=== PATIENT | male | born 1950 | race African-American/Black ===

== ENCOUNTER → 2016-10-27 | Outpatient (CLI) | payer MEDICARE, OTHER ==
[~2016-10-27] MED LIST: LAMISIL15 GM TOPIC; NKM
[2016-10-27 16:23] LABS: EOSINOPHILS % (AUTO) 0.5 % (0.0-3.0); LYMPHOCYTES % (AUTO) 14.9 % (20.0-45.0); MEAN CORPUSCULAR HEMOGLOBIN 29.7 PG (27.0-31.0); MEAN CORPUSCULAR HGB CONC 30.1 G/DL (32.0-36.0); MEAN CORPUSCULAR VOLUME 99 FL (80-99); MEAN PLATELET VOLUME 8.6 FL (6.5-10.1); MONOCYTES % (AUTO) 11.1 % (1.0-10.0); NEUTROPHILS % (AUTO) 71.6 % (45.0-75.0); PLATELET COUNT 206 K/UL (150-450); RED BLOOD COUNT 4.68 M/UL (4.70-6.10); RED CELL DISTRIBUTION WIDTH 13.2 % (11.6-14.8); WHITE BLOOD COUNT 10.2 K/UL (4.8-10.8)
[2016-10-27 16:32] LABS: ANION GAP 17 (5-15); CALCIUM 9.3 mg/dL (8.6-10.2); CARBON DIOXIDE 24 mEQ/L (20-30); CHLORIDE 96 mEQ/L (98-107); CHOLESTEROL 160 mg/dL (< 200); CHOLESTEROL/HDL RATIO 2.2 (3.3-4.4); CREATININE 1.2 mg/dL (0.7-1.2); GLOMERULAR FILTRATION RATE > 60 mL/min (>60); HEMOLYSIS 2; LDL CHOLESTEROL (CALC.) 67 mg/dL (60-99); POTASSIUM 3.8 mEQ/L (3.4-4.9); SODIUM 137 mEQ/L (135-145)
[2016-10-27 16:42] LABS: THYROID STIMULATING HORMONE 0.665 uIU/mL (0.300-4.500)
== END | disposition home or self-care (01) ==
LOC: LAB 15:40
DX: R63.4 Abnormal weight loss (principal)
CPT/HCPCS: 36415; 80048; 80061; 83036; 84443; 85025

== ENCOUNTER → 2017-01-14 | Outpatient (CLI) | payer MEDICARE, OTHER ==
[2017-01-14 10:04] LABS: BASOPHILS % (AUTO) 0.7 % (0.0-2.0); EOSINOPHILS % (AUTO) 0.8 % (0.0-3.0); LYMPHOCYTES % (AUTO) 20.7 % (20.0-45.0); MEAN CORPUSCULAR HEMOGLOBIN 30.7 PG (27.0-31.0); MEAN CORPUSCULAR HGB CONC 31.2 G/DL (32.0-36.0); MEAN CORPUSCULAR VOLUME 99 FL (80-99); MEAN PLATELET VOLUME 5.7 FL (6.5-10.1); MONOCYTES % (AUTO) 8.2 % (1.0-10.0); NEUTROPHILS % (AUTO) 69.6 % (45.0-75.0); PLATELET COUNT 564 K/UL (150-450); RED BLOOD COUNT 3.74 M/UL (4.70-6.10); RED CELL DISTRIBUTION WIDTH 13.1 % (11.6-14.8); WHITE BLOOD COUNT 7.4 K/UL (4.8-10.8)
[2017-01-14 10:37] LABS: ANION GAP 15 (5-15); CALCIUM 9.3 mg/dL (8.6-10.2); CARBON DIOXIDE 25 mEQ/L (20-30); CHLORIDE 104 mEQ/L (98-107); CREATININE 1.1 mg/dL (0.7-1.2); GLOMERULAR FILTRATION RATE > 60 mL/min (>60); HEMOLYSIS 13; POTASSIUM 4.7 mEQ/L (3.4-4.9); SODIUM 144 mEQ/L (135-145)
[2017-01-15 13:02] LABS: PREALBUMIN 16 mg/dL (10-36)
[2017-01-17 09:15] LABS: VITAMIN D 25-OH TOTAL 13 ng/mL (.)
== END | disposition home or self-care (01) ==
LOC: LAB 09:34
DX: R63.4 Abnormal weight loss (principal)
CPT/HCPCS: 36415; 80048; 82040; 82306; 82607; 84134; 85025

== ENCOUNTER 2017-03-02 14:53 | Inpatient (IN) | payer MEDICARE, MEDICAID ==
[~2017-03-02] VITALS: Ht 165.1 cm; Wt 49.0 kg
[2017-03-02] MEDS ORDERED: Morphine Sulfate 2mg/ml Inj IVP PRN (15:15)
[2017-03-02] MEDS ORDERED: Mylanta II UD 30ml ORAL PRN (15:15)
[2017-03-02] MEDS ORDERED: Zolpidem 5mg tab ORAL PRN (15:15)
[2017-03-02] MEDS ORDERED: LORazepam Inj 2mg/ml 1ml IV PRN (15:15)
[2017-03-02] MEDS ORDERED: Miralax 17gm pkt ORAL PRN (15:15)
--- NOTE | 2017-03-02 15:49 | Emergency Room Report ---
History of Present Illness General Chief Complaint: Generalized Weakness Source: Patient Present Illness HPI 66 yo M hx of appy/gustabo s/p surgical resection several years ago, p/w 3 weeks of lightheadedness, dec appetite, fatigue. States he has not had any appetite, for both food and liquid. Today he has not eaten anything. +nausea no vomiting. Denies abd pain, but does have loose stools periodically. Denies any black or bloody stools. Denies fever chills cough. +mild sob. No cp. denies hx of malignancy. has had ~15 pound weight loss in 2 weeks. Allergies: Coded Allergies: No Known Allergies (Unverified , 03/12/13) Patient History Past Medical History: none Past Surgical History: appy, gustabo Pertinent Family History: none Social History: Reports: smoking Nursing Documentation-[facility] Past Medical History: No Stated History Review of Systems Constitutional: Reports: malaise - dizziness, weakness Gastrointestinal: Reports: nausea All Other Systems: negative except mentioned in HPI Physical Exam Vital Signs Date Time Temp Pulse Resp B/P Pulse Ox O2 Delivery O2 Flow Rate FiO2 03/02/17 15:04 98.4 89 14 104/77 100 Room Air Sp02 EP Interpretation: reviewed, normal General Appearance: normal inspection, no apparent distress, alert, GCS 15, non -toxic, cachetic, thin Head: normocephalic, atraumatic Eyes: bilateral eye EOMI, bilateral eye normal inspection ENT: normal ENT inspection, normal pharynx, normal voice, moist mucus membranes Neck: normal inspection, full range of motion, supple, no bony tend Respiratory: normal inspection, lungs clear, normal breath sounds, no respiratory distress, no retraction, no wheezing, speaking full sentences, chest symmetrical Cardiovascular #1: normal inspection, regular rate, rhythm, no edema, normal capillary refill Gastrointestinal: normal inspection, non tender, soft, non-distended, no guarding, other - well healed surgical scars on abdomen, nontender to deep palpation, normal bowel sounds Genitourinary: no CVA tenderness Musculoskeletal: normal inspection, back normal, normal range of motion, non- tender Neurologic: normal inspection, alert, oriented x3, responsive, 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 I attest that this information is true, accurate and complete to the best of my knowledge. I understand that any falsification, omission, or concealment of material fact may subject me to administrative, civil, or criminal liability. This patient warrants hospital admission for extreme of age and has a condition that cannot be treated as outpatient. ER Course 66 yo M with 2 weeks of dec appetite, lightheadedness DDX: failure to thrive / dehydration / electrolyte disturbance / infectious etiology pneumonia/UTI / malignancy Plans: IV access, basic blood work, cxr, IV fluids, anticipate admission ER course: has remained stable in ED. EKG: possible peaked T waves that was tx with 1gm calcium however chemistry resulted later showing no hyperkalemia labs no leukocytosis given IVF Disposition Admit to medicine unit Dr. Germain sent in patient and is aware. Patient requires inpatient admission for dehydration/failure to thrive EKG Diagnostic Results Rate: normal Rhythm: NSR ST Segments: no acute changes Other Impression concern for peaked T waves V4-V5 Rhythm Strip Diag. Results EP Interpretation: yes Rhythm: NSR Last Vital Signs Date Time Temp Pulse Resp B/P Pulse Ox O2 Delivery O2 Flow Rate FiO2 03/02/17 15:04 98.4 89 14 104/77 100 Room Air Disposition: ADMITTED INPATIENT Condition: Stable Referrals: NOT CHOSEN DE/,REFERRING (PCP) Madisyn Eddy M.D. Mar 02, 2017 15:49
[2017-03-02] MEDS ORDERED: Calcium Gluconate 1gm/10ml vial IVP ONE (16:00)
[2017-03-02 16:14] LABS: BASOPHILS % (AUTO) 1.4 % (0.0-2.0); EOSINOPHILS % (AUTO) 8.1 % (0.0-3.0); LYMPHOCYTES % (AUTO) 29.4 % (20.0-45.0); MEAN CORPUSCULAR HEMOGLOBIN 31.6 PG (27.0-31.0); MEAN CORPUSCULAR HGB CONC 32.3 G/DL (32.0-36.0); MEAN CORPUSCULAR VOLUME 98 FL (80-99); MEAN PLATELET VOLUME 8.1 FL (6.5-10.1); MONOCYTES % (AUTO) 5.1 % (1.0-10.0); PLATELET COUNT 208 K/UL (150-450); RED BLOOD COUNT 3.64 M/UL (4.70-6.10); RED CELL DISTRIBUTION WIDTH 14.4 % (11.6-14.8); WHITE BLOOD COUNT 5.7 K/UL (4.8-10.8)
[2017-03-02 16:38] VITALS: BP 104/69
[2017-03-02 16:38] LABS: ALANINE AMINOTRANSFERASE 19 U/L (3-41); ANION GAP 12 (5-15); ASPARTATE AMINO TRANSFERASE 21 U/L (5-40); CALCIUM 8.9 mg/dL (8.6-10.2); CARBON DIOXIDE 26 mEQ/L (20-30); CHLORIDE 101 mEQ/L (98-107); CREATININE 1.2 mg/dL (0.7-1.2); GLOMERULAR FILTRATION RATE > 60 mL/min (>60); HEMOLYSIS 25; POTASSIUM 4.7 mEQ/L (3.4-4.9); SODIUM 139 mEQ/L (135-145); TOTAL PROTEIN 7.3 g/dL (6.6-8.7)
--- NOTE | 2017-03-02 16:41 | Diagnostic Imaging Report ---
Indication: Shortness of breath Technique: One view of the chest Comparison: None Findings: Lungs are mildly hyperinflated. There is slight blunting of the right costophrenic angle. Lungs and pleural spaces are otherwise clear. Heart size is normal. Impression: Evidence of COPD Right costophrenic angle blunting, probably secondary to the above, small effusion not completely excludable No acute process otherwise
--- NOTE | 2017-03-02 16:55 | History and Physical ---
History of Present Illness General Date patient seen: Mar 02, 2017 Reason for Hospitalization: Generalized Weakness Present Illness HPI 66 yo M hx of appy/gustabo s/p surgical resection several years ago, p/w 3 weeks of lightheadedness, decreased appetite, fatigue. States he has not had any appetite, for both food and liquid. +nausea no vomiting. Denies abd pain, but does have loose stools periodically. Denies any black or bloody stools. Denies fever chills cough. +mild sob. No cp. denies hx of malignancy. has had ~15 pound weight loss in 2 weeks. Allergies: Coded Allergies: No Known Allergies (Unverified , 03/12/13) Medication History Scheduled No Known Medications* (NKM - No Known Medications*), 0 ., (Reported) Terbinafine (Lamisil At), 15 GM TOPIC BID Patient History Healthcare decision maker Resuscitation status Advanced Directive on File Past Medical/Surgical History Past Medical/Surgical History: (1) History of appendectomy Review of Systems Constitutional: Reports: malaise, weakness All Other Systems: negative except mentioned in HPI Physical Exam General Appearance: cachetic Lines, tubes and drains: peripheral HEENT: normocephalic, atraumatic Neck: non-tender, normal alignment Respiratory/Chest: chest wall non-tender, lungs clear Breasts: no masses Cardiovascular/Chest: normal peripheral pulses Abdomen: normal bowel sounds Genitourinary/Rectal: normal genital exam Extremities: normal range of motion Skin Exam: normal pigmentation Last 24 Hour Vital Signs Date Time Temp Pulse Resp B/P Pulse Ox O2 Delivery O2 Flow Rate FiO2 03/02/17 16:38 98.3 70 14 104/69 100 Room Air 03/02/17 15:04 98.4 89 14 104/77 100 Room Air Laboratory Tests Test 03/02/17 15:45 White Blood Count 5.7 K/UL (4.8-10.8) Red Blood Count 3.64 M/UL (4.70-6.10) L Hemoglobin 11.5 G/DL (14.2-18.0) L Hematocrit 35.5 % (42.0-52.0) L Mean Corpuscular Volume 98 FL (80-99) Mean Corpuscular Hemoglobin 31.6 PG (27.0-31.0) H Mean Corpuscular Hemoglobin Concent 32.3 G/DL (32.0-36.0) Red Cell Distribution Width 14.4 % (11.6-14.8) Platelet Count 208 K/UL (150-450) Mean Platelet Volume 8.1 FL (6.5-10.1) Neutrophils (%) (Auto) 56.0 % (45.0-75.0) Lymphocytes (%) (Auto) 29.4 % (20.0-45.0) Monocytes (%) (Auto) 5.1 % (1.0-10.0) Eosinophils (%) (Auto) 8.1 % (0.0-3.0) H Basophils (%) (Auto) 1.4 % (0.0-2.0) Sodium Level 139 mEQ/L (135-145) Potassium Level 4.7 mEQ/L (3.4-4.9) Chloride Level 101 mEQ/L (98-107) Carbon Dioxide Level 26 mEQ/L (20-30) Anion Gap 12 (5-15) Blood Urea Nitrogen 18 mg/dL (7-23) Creatinine 1.2 mg/dL (0.7-1.2) Estimat Glomerular Filtration Rate > 60 mL/min (>60) Glucose Level 76 mg/dL (74-106) Calcium Level 8.9 mg/dL (8.6-10.2) Total Bilirubin 0.3 mg/dL (0.0-1.2) Aspartate Amino Transf (AST/SGOT) 21 U/L (5-40) Alanine Aminotransferase (ALT/SGPT) 19 U/L (3-41) Alkaline Phosphatase 114 U/L (40-129) Troponin I Pending Total Protein 7.3 g/dL (6.6-8.7) Albumin 3.8 g/dL (3.5-5.2) Globulin 3.5 g/dL Albumin/Globulin Ratio 1.0 (1.0-2.7) Height (Feet): 5 Height (Inches): 6.00 Weight (Pounds): 108 Medications Current Medications Medications (Trade) Dose Ordered Sig/Hill Route PRN Reason Start Time Stop Time Status Last Admin Dose Admin Acetaminophen (Tylenol) 650 mg Q4H PRN ORAL fever 03/02/17 15:15 04/01/17 15:14 Al Hydroxide/Mg Hydroxide (Mylanta II) 30 ml Q6H PRN ORAL dyspepsia 03/02/17 15:15 04/01/17 15:14 Dextrose (Dextrose 50%) STAT PRN IV Hypoglycemia 03/02/17 15:15 04/01/17 15:14 Lorazepam (Ativan 2mg/ml 1ml) 0.5 mg Q4H PRN IV For Anxiety 03/02/17 15:15 03/09/17 15:14 Morphine Sulfate (Morphine Sulfate) 1 mg Q4H PRN IVP For Pain Scale 4-10 03/02/17 15:15 03/09/17 15:14 Ondansetron HCl (Zofran) 4 mg Q6H PRN IVP Nausea & Vomiting 03/02/17 15:15 04/01/17 15:14 Polyethylene Glycol (Miralax) 17 gm HSPRN PRN ORAL Constipation 03/02/17 15:15 04/01/17 15:14 Zolpidem Tartrate (Ambien) 5 mg HSPRN PRN ORAL Insomnia 03/02/17 15:15 04/01/17 15:14 Assessment/Plan Problem List: (1) Weight loss of more than 10% body weight ICD Codes: R63.4 - Abnormal weight loss SNOMED: 74172819 (2) Anemia ICD Codes: D64.9 - Anemia, unspecified SNOMED: 047775541 (3) Failure to thrive SNOMED: 19840823 Assessment/Plan calorie count GI evaluation malignancy w/u tumor markers BARBER GAMBLE Mar 02, 2017 16:55
[2017-03-02 17:27] LABS: TROPONIN I < 0.30 ng/mL (<=0.30)
[2017-03-02 17:38] VITALS: BP 131/94
[2017-03-02 20:00] VITALS: BP 143/98
[2017-03-03] VITALS: BP 127/78
[2017-03-03 04:00] VITALS: BP 122/73
[2017-03-03 06:34] LABS: BASOPHILS % (AUTO) 1.3 % (0.0-2.0); EOSINOPHILS % (AUTO) 10.3 % (0.0-3.0); MEAN CORPUSCULAR HEMOGLOBIN 30.9 PG (27.0-31.0); MEAN CORPUSCULAR HGB CONC 31.8 G/DL (32.0-36.0); MEAN CORPUSCULAR VOLUME 97 FL (80-99); MEAN PLATELET VOLUME 7.7 FL (6.5-10.1); MONOCYTES % (AUTO) 7.8 % (1.0-10.0); NEUTROPHILS % (AUTO) 39.7 % (45.0-75.0); PLATELET COUNT 225 K/UL (150-450); RED BLOOD COUNT 3.93 M/UL (4.70-6.10); RED CELL DISTRIBUTION WIDTH 14.2 % (11.6-14.8); WHITE BLOOD COUNT 4.7 K/UL (4.8-10.8)
[2017-03-03 07:21] LABS: ALANINE AMINOTRANSFERASE 16 U/L (3-41); ANION GAP 9 (5-15); ASPARTATE AMINO TRANSFERASE 18 U/L (5-40); CALCIUM 8.9 mg/dL (8.6-10.2); CARBON DIOXIDE 27 mEQ/L (20-30); CHLORIDE 104 mEQ/L (98-107); CHOLESTEROL 145 mg/dL (< 200); CHOLESTEROL/HDL RATIO 2.1 (3.3-4.4); CREATININE 1.1 mg/dL (0.7-1.2); GLOMERULAR FILTRATION RATE > 60 mL/min (>60); HEMOLYSIS 2; LDL CHOLESTEROL (CALC.) 49 mg/dL (60-99); POTASSIUM 4.3 mEQ/L (3.4-4.9); SODIUM 140 mEQ/L (135-145); TOTAL PROTEIN 6.7 g/dL (6.6-8.7)
[2017-03-03 07:29] LABS: APPEARANCE,URINE SLIGHTLY CLOUDY; KETONES,URINE NEGATIVE (NEGATIVE); LEUKOCYTE ESTERASE ,URINE 3+ (NEGATIVE); NITRITE,URINE POSITIVE (NEGATIVE); PH,URINE 7 (4.5-8.0); PROTEIN,URINE NEGATIVE (NEGATIVE); UROBILINOGEN,URINE 1 MG/DL (0.0-1.0)
[2017-03-03 07:43] LABS: BACTERIA,URINE MODERATE /HPF; RBC,URINE 0-2 /HPF (0 - 0); SQUAMOUS EPITHELIAL CELL,UR FEW /LPF (NONE/OCC)
[2017-03-03 08:16] VITALS: BP 119/84
[2017-03-03 09:30] LABS: HEMOLYSIS 6; IRON 89 ug/dL (59-158); TOTAL IRON BINDING CAPACITY 310 ug/dL (250-400)
[2017-03-03 12:14] VITALS: BP 107/67
[2017-03-03] MEDS ORDERED: Magnesium Citrate Liq Btl ORAL ONE (16:00)
[2017-03-03] MEDS ORDERED: Polyethylene Glycol 238gm bottle ORAL ONE (16:00)
[2017-03-03] MEDS ORDERED: Bisacodyl EC 5mg tab ORAL ONE (16:00)
--- NOTE | 2017-03-03 16:24 | GI Initial Consult Note ---
Xiomara Dacosta N.P. 03/03/17 1624: History of Present Illness General Date patient seen: Mar 03, 2017 Time patient seen: 11:00 Reason for Hospitalization: Generalized Weakness Referring physician: BARBER HUDSON Reason for Consultation: FTT Present Illness HPI 66 yo M hx of appy/gustabo s/p surgical resection several years ago, p/w 3 weeks of lightheadedness, dec appetite, fatigue. States he has not had any appetite, for both food and liquid. Today he has not eaten anything. +nausea no vomiting. Denies abd pain, but does have loose stools periodically. Denies any black or bloody stools. Denies fever chills cough. +mild sob. No cp. denies hx of malignancy. has had ~15 pound weight loss in 2 weeks. GI Consult. HPI as noted above. GI consulted for decreased appetite, wt loss of 15 lbs x 2 weeks. Pt seen on floor, awake A&Ox4 NAD with no active s/sx of N /V/D. No GI symptoms noted at this time. No history of any endoscopic procedures. Hx of abdominal surgery approximately 3-4 years ago, pt unable to recall. Home Meds Active Scripts Dronabinol* (MARINOL*) 2.5 Mg Capsule, 2.5 MG ORAL THREE TIMES A DAY, #15 CAP 0 Refills Prov:BARBER GAMBLE 03/05/17 Zolpidem Tartrate* (AMBIEN*) 5 Mg Tablet, 5 MG ORAL HSPRN Y for 30 Days, TAB Prov:BARBER GAMBLE 03/05/17 Terbinafine (Lamisil At) 15 Gm Cr, 15 GM TOPIC BID, #15 GM Prov:OSCAR VASQUEZ M.D. 03/12/13 Reported Medications No Known Medications* (NKM - No Known Medications*) ., 0 ., 0 Refills 03/12/13 Med list reviewed/reconciled: Yes Allergies: Coded Allergies: No Known Allergies (Unverified , 03/12/13) Patient History History Provided By: Patient, Medical Record PMH Narrative Past Medical History: none Past Surgical History: appy, gustabo Pertinent Family History: none Social History: Reports: smoking Nursing Documentation-[facility] Past Medical History: No Stated History Review of Systems All Other Systems: negative except mentioned in HPI Physical Exam Vital Signs Date Time Temp Pulse Resp B/P Pulse Ox O2 Delivery O2 Flow Rate FiO2 03/02/17 15:04 98.4 89 14 104/77 100 Room Air Sp02 EP Interpretation: reviewed Labs Laboratory Tests Test 03/03/17 03:00 03/03/17 04:50 Urine Color Yellow Urine Appearance Slightly cloudy Urine pH 7 (4.5-8.0) Urine Specific [place] 1.005 (1.005-1.035) Urine Protein Negative (NEGATIVE) Urine Glucose (UA) Negative (NEGATIVE) Urine Ketones Negative (NEGATIVE) Urine Occult Blood Negative (NEGATIVE) Urine Nitrite Positive (NEGATIVE) H Urine Bilirubin Negative (NEGATIVE) Urine Urobilinogen 1 MG/DL (0.0-1.0) H Urine Leukocyte Esterase 3+ (NEGATIVE) H Urine RBC 0-2 /HPF (0 - 0) H Urine WBC 5-10 /HPF (0 - 0) H Urine Squamous Epithelial Cells Few /LPF (NONE/OCC) Urine Bacteria Moderate /HPF (NONE) H White Blood Count 4.7 K/UL (4.8-10.8) L Red Blood Count 3.93 M/UL (4.70-6.10) L Hemoglobin 12.1 G/DL (14.2-18.0) L Hematocrit 38.2 % (42.0-52.0) L Mean Corpuscular Volume 97 FL (80-99) Mean Corpuscular Hemoglobin 30.9 PG (27.0-31.0) Mean Corpuscular Hemoglobin Concent 31.8 G/DL (32.0-36.0) L Red Cell Distribution Width 14.2 % (11.6-14.8) Platelet Count 225 K/UL (150-450) Mean Platelet Volume 7.7 FL (6.5-10.1) Neutrophils (%) (Auto) 39.7 % (45.0-75.0) L Lymphocytes (%) (Auto) 41.0 % (20.0-45.0) Monocytes (%) (Auto) 7.8 % (1.0-10.0) Eosinophils (%) (Auto) 10.3 % (0.0-3.0) H Basophils (%) (Auto) 1.3 % (0.0-2.0) Sodium Level 140 mEQ/L (135-145) Potassium Level 4.3 mEQ/L (3.4-4.9) Chloride Level 104 mEQ/L (98-107) Carbon Dioxide Level 27 mEQ/L (20-30) Anion Gap 9 (5-15) Blood Urea Nitrogen 15 mg/dL (7-23) Creatinine 1.1 mg/dL (0.7-1.2) Estimat Glomerular Filtration Rate > 60 mL/min (>60) Glucose Level 87 mg/dL (74-106) Calcium Level 8.9 mg/dL (8.6-10.2) Iron Level 89 ug/dL (59-158) Total Iron Binding Capacity 310 ug/dL (250-400) Percent Iron Saturation 29 % (15-50) Unsaturated Iron Binding 221 ug/dL (112-346) Total Bilirubin 0.5 mg/dL (0.0-1.2) Aspartate Amino Transf (AST/SGOT) 18 U/L (5-40) Alanine Aminotransferase (ALT/SGPT) 16 U/L (3-41) Alkaline Phosphatase 101 U/L (40-129) Total Protein 6.7 g/dL (6.6-8.7) Albumin 3.5 g/dL (3.5-5.2) Globulin 3.2 g/dL Albumin/Globulin Ratio 1.0 (1.0-2.7) Triglycerides Level 130 mg/dL (< 150) Cholesterol Level 145 mg/dL (< 200) LDL Cholesterol 49 mg/dL (60-99) L HDL Cholesterol 70 mg/dL (> 60) H Cholesterol/HDL Ratio 2.1 (3.3-4.4) L Carcinoembryonic Antigen 7.7 ng/mL H Thyroid Stimulating Hormone (TSH) 0.900 uIU/mL (0.300-4.500) General Appearance: well appearing, no apparent distress, alert, thin Head: normocephalic EENT: PERRL/EOMI, normal ENT inspection Neck: supple Respiratory: normal breath sounds, no respiratory distress Cardiovascular: normal rate Gastrointestinal: soft, normal bowel sounds Rectal: normal exam, deferred Genitourinary: no CVA tenderness Neurologic: normal inspection, alert, oriented x3, responsive Psychiatric: normal inspection, judgement/insight normal, memory normal Skin: normal inspection, normal color, no rash, warm/dry Lymphatic: normal inspection, no adenopathy Current Medications Current Medications Medications (Trade) Dose Ordered Sig/Hill Route PRN Reason Start Time Stop Time Status Last Admin Dose Admin Acetaminophen (Tylenol) 650 mg Q4H PRN ORAL fever 03/02/17 15:15 04/01/17 15:14 Al Hydroxide/Mg Hydroxide (Mylanta II) 30 ml Q6H PRN ORAL dyspepsia 03/02/17 15:15 04/01/17 15:14 Dextrose (Dextrose 50%) STAT PRN IV Hypoglycemia 03/02/17 15:15 04/01/17 15:14 Lorazepam (Ativan 2mg/ml 1ml) 0.5 mg Q4H PRN IV For Anxiety 03/02/17 15:15 03/09/17 15:14 Morphine Sulfate (Morphine Sulfate) 1 mg Q4H PRN IVP For Pain Scale 4-10 03/02/17 15:15 03/09/17 15:14 Ondansetron HCl (Zofran) 4 mg Q6H PRN IVP Nausea & Vomiting 03/02/17 15:15 04/01/17 15:14 Polyethylene Glycol (Miralax) 17 gm HSPRN PRN ORAL Constipation 03/02/17 15:15 04/01/17 15:14 Zolpidem Tartrate (Ambien) 5 mg HSPRN PRN ORAL Insomnia 03/02/17 15:15 04/01/17 15:14 GI: Plan Problems: (1) Colonoscopy planned (2) Episode of generalized weakness (3) Failure to thrive Plan EGD/colonoscopy scheduled for tomorrow. - CLD, NPO @ [place]. - hold all blood thinners tonight ordered ga CT ordered tumor markers calorie count, will consider marinol H2B fu labs Discussed with Dr. Carson. Thank you for referring this patient. MEGA CARSON 03/11/17 0945: History of Present Illness General Reason for Hospitalization: Generalized Weakness Present Illness Home Meds Active Scripts Dronabinol* (MARINOL*) 2.5 Mg Capsule, 2.5 MG ORAL THREE TIMES A DAY, #15 CAP 0 Refills Prov:ZARRABI,MIRALI 03/05/17 Zolpidem Tartrate* (AMBIEN*) 5 Mg Tablet, 5 MG ORAL HSPRN Y for 30 Days, TAB Prov:ZARRABI,MIRALI 03/05/17 Terbinafine (Lamisil At) 15 Gm Cr, 15 GM TOPIC BID, #15 GM Prov:OSCAR VASQUEZ M.D. 03/12/13 Reported Medications No Known Medications* (NKM - No Known Medications*) ., 0 ., 0 Refills 03/12/13 Allergies: Coded Allergies: No Known Allergies (Unverified , 03/12/13) GI: Plan Plan The patient was seen and examined at bedside and all new and available data was reviewed in the patients chart. I agree with the above findings, impression and plan. (Patient seen earlier today. Signature stamp does not reflect patient encounter time.). -Mega [facility] James N.PSarahy Mar 03, 2017 16:24 MEGA CARSON Mar 11, 2017 09:45
[2017-03-03 16:34] VITALS: BP 105/63
--- NOTE | 2017-03-03 19:29 | Pulmonology Progress Note ---
Assessment/Plan Problems: (1) Weight loss of more than 10% body weight (2) Anemia (3) Failure to thrive Assessment/Plan ga CT scan HIV testing stool for OB calorie count' ensure with meals Subjective ROS Limited/Unobtainable: No Allergies: Coded Allergies: No Known Allergies (Unverified , 03/12/13) Objective Last 24 Hour Vital Signs Date Time Temp Pulse Resp B/P Pulse Ox O2 Delivery O2 Flow Rate FiO2 03/03/17 16:34 97.9 64 18 105/63 95 Room Air 03/03/17 12:14 97.7 63 18 107/67 95 Room Air 03/03/17 08:16 97.6 76 18 119/84 98 Room Air 03/03/17 04:00 97.5 77 20 122/73 98 Room Air 03/03/17 00:00 97.9 99 20 127/78 100 Room Air 03/02/17 20:00 97.0 75 20 143/98 96 Room Air Intake and Output 03/02/17 03/03/17 19:00 07:00 Intake Total 240 ml Output Total 1250 ml Balance -1010 ml Intake Oral 240 ml Output Urine Total 1250 ml General Appearance: WD/WN, no acute distress HEENT: normocephalic, atraumatic Respiratory/Chest: chest wall non-tender, lungs clear Cardiovascular: normal peripheral pulses, normal rate Abdomen: normal bowel sounds, soft, non tender Genitourinary: normal external genitalia Extremities: no cyanosis Laboratory Tests 03/03/17 03:00: Urine Color Yellow, Urine Appearance Slightly cloudy, Urine pH 7, Urine Specific [place] 1.005, Urine Protein Negative, Urine Glucose (UA) Negative, Urine Ketones Negative, Urine Occult Blood Negative, Urine Nitrite PositiveH, Urine Bilirubin Negative, Urine Urobilinogen 1H, Urine Leukocyte Esterase 3+H, Urine RBC 0-2H, Urine WBC 5-10H, Urine Squamous Epithelial Cells Few, Urine Bacteria ModerateH 03/03/17 04:50: White Blood Count 4.7L, Red Blood Count 3.93L, Hemoglobin 12.1L, Hematocrit 38.2L, Mean Corpuscular Volume 97, Mean Corpuscular Hemoglobin 30.9, Mean Corpuscular Hemoglobin Concent 31.8L, Red Cell Distribution Width 14.2, Platelet Count 225, Mean Platelet Volume 7.7, Neutrophils (%) (Auto) 39.7L, Lymphocytes (%) (Auto) 41.0, Monocytes (%) (Auto) 7.8, Eosinophils (%) (Auto) 10.3H, Basophils (%) (Auto) 1.3, Sodium Level 140, Potassium Level 4.3, Chloride Level 104, Carbon Dioxide Level 27, Anion Gap 9, Blood Urea Nitrogen 15 , Creatinine 1.1, Estimat Glomerular Filtration Rate > 60, Glucose Level 87, Calcium Level 8.9, Iron Level 89, Total Iron Binding Capacity 310, Percent Iron Saturation 29, Unsaturated Iron Binding 221, Total Bilirubin 0.5, Aspartate Amino Transf (AST/SGOT) 18, Alanine Aminotransferase (ALT/SGPT) 16, Alkaline Phosphatase 101, Total Protein 6.7, Albumin 3.5, Globulin 3.2, Albumin/Globulin Ratio 1.0, Triglycerides Level 130, Cholesterol Level 145, LDL Cholesterol 49L, HDL Cholesterol 70H, Cholesterol/HDL Ratio 2.1L, Carcinoembryonic Antigen 7.7H, Thyroid Stimulating Hormone (TSH) 0.900 Current Medications Medications (Trade) Dose Ordered Sig/Hill Route PRN Reason Start Time Stop Time Status Last Admin Dose Admin Acetaminophen (Tylenol) 650 mg Q4H PRN ORAL fever 03/02/17 15:15 04/01/17 15:14 Al Hydroxide/Mg Hydroxide (Mylanta II) 30 ml Q6H PRN ORAL dyspepsia 03/02/17 15:15 04/01/17 15:14 Dextrose (Dextrose 50%) STAT PRN IV Hypoglycemia 03/02/17 15:15 04/01/17 15:14 Lorazepam (Ativan 2mg/ml 1ml) 0.5 mg Q4H PRN IV For Anxiety 03/02/17 15:15 03/09/17 15:14 Morphine Sulfate (Morphine Sulfate) 1 mg Q4H PRN IVP For Pain Scale 4-10 03/02/17 15:15 03/09/17 15:14 Ondansetron HCl (Zofran) 4 mg Q6H PRN IVP Nausea & Vomiting 03/02/17 15:15 04/01/17 15:14 Polyethylene Glycol (Miralax) 17 gm HSPRN PRN ORAL Constipation 03/02/17 15:15 04/01/17 15:14 Zolpidem Tartrate (Ambien) 5 mg HSPRN PRN ORAL Insomnia 03/02/17 15:15 04/01/17 15:14 BARBER GAMBLE Mar 03, 2017 19:29
[2017-03-03] MEDS: cefTRIAXone 1 GM in D5W 55 ML IVPB SCH (20:33)
[2017-03-04] VITALS (10 sets, daily range): BP systolic 101–139; BP diastolic 68–94
--- NOTE | 2017-03-04 06:19 | Anethesia Preoperative Eval ---
Anesthesia Pre-op PMH/ROS General Date of Evaluation: Mar 04, 2017 Time of Evaluation: 06:19 Anesthesiologist: miguelangel ASA Score: ASA 2 Mallampati Score Class I : Soft palate, uvula, fauces, pillars visible Class II: Soft palate, uvula, fauces visible Class III: Soft palate, base of uvula visible Class IV: Only hard plate visible Mallampati Classification: Class II Surgeon: thomas Diagnosis: weight loss, failure to thrive Surgical Procedure: egd/colonoscopy Anesthesia History: none Social History: current smoker Family History: no anesthesia problems Allergies: Coded Allergies: No Known Allergies (Unverified , 03/12/13) Medications: see eMAR Past Medical History HEENT: 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 Exam Physician Exam Last Vital Signs Date Time Temp Pulse Resp B/P Pulse Ox O2 Delivery O2 Flow Rate FiO2 03/04/17 00:08 96.8 67 18 103/68 99 Room Air Constitutional: NAD Neurologic: CN 2-12 intact Cardiovascular: RRR Respiratory: CTA Gastrointestinal: S/NT/ND Airway Exam Mallampati Score: Class II MO: full Neck: supple TMD: 2fb ROM: full Teeth: intact Anesthesia Pre-op A/P Labs Labs Test 03/02/17 15:45 03/03/17 03:00 03/03/17 04:50 03/04/17 05:15 White Blood Count 5.7 K/UL (4.8-10.8) 4.7 K/UL (4.8-10.8) 5.3 K/UL (4.8-10.8) Red Blood Count 3.64 M/UL (4.70-6.10) 3.93 M/UL (4.70-6.10) 4.45 M/UL (4.70-6.10) Hemoglobin 11.5 G/DL (14.2-18.0) 12.1 G/DL (14.2-18.0) 13.2 G/DL (14.2-18.0) Hematocrit 35.5 % (42.0-52.0) 38.2 % (42.0-52.0) 44.0 % (42.0-52.0) Mean Corpuscular Volume 98 FL (80-99) 97 FL (80-99) 99 FL (80-99) Mean Corpuscular Hemoglobin 31.6 PG (27.0-31.0) 30.9 PG (27.0-31.0) 29.5 PG (27.0-31.0) Mean Corpuscular Hemoglobin Concent 32.3 G/DL (32.0-36.0) 31.8 G/DL (32.0-36.0) 29.9 G/DL (32.0-36.0) Red Cell Distribution Width 14.4 % (11.6-14.8) 14.2 % (11.6-14.8) 14.4 % (11.6-14.8) Platelet Count 208 K/UL (150-450) 225 K/UL (150-450) 234 K/UL (150-450) Mean Platelet Volume 8.1 FL (6.5-10.1) 7.7 FL (6.5-10.1) 7.8 FL (6.5-10.1) Neutrophils (%) (Auto) 56.0 % (45.0-75.0) 39.7 % (45.0-75.0) 41.0 % (45.0-75.0) Lymphocytes (%) (Auto) 29.4 % (20.0-45.0) 41.0 % (20.0-45.0) 40.3 % (20.0-45.0) Monocytes (%) (Auto) 5.1 % (1.0-10.0) 7.8 % (1.0-10.0) 9.0 % (1.0-10.0) Eosinophils (%) (Auto) 8.1 % (0.0-3.0) 10.3 % (0.0-3.0) 8.2 % (0.0-3.0) Basophils (%) (Auto) 1.4 % (0.0-2.0) 1.3 % (0.0-2.0) 1.5 % (0.0-2.0) Sodium Level 139 mEQ/L (135-145) 140 mEQ/L (135-145) 144 mEQ/L (135-145) Potassium Level 4.7 mEQ/L (3.4-4.9) 4.3 mEQ/L (3.4-4.9) 4.5 mEQ/L (3.4-4.9) Chloride Level 101 mEQ/L (98-107) 104 mEQ/L (98-107) 106 mEQ/L (98-107) Carbon Dioxide Level 26 mEQ/L (20-30) 27 mEQ/L (20-30) 28 mEQ/L (20-30) Anion Gap 12 (5-15) 9 (5-15) 10 (5-15) Blood Urea Nitrogen 18 mg/dL (7-23) 15 mg/dL (7-23) 16 mg/dL (7-23) Creatinine 1.2 mg/dL (0.7-1.2) 1.1 mg/dL (0.7-1.2) 1.0 mg/dL (0.7-1.2) Estimat Glomerular Filtration Rate > 60 mL/min (>60) > 60 mL/min (>60) > 60 mL/min (>60) Glucose Level 76 mg/dL (74-106) 87 mg/dL (74-106) 80 mg/dL (74-106) Calcium Level 8.9 mg/dL (8.6-10.2) 8.9 mg/dL (8.6-10.2) 8.9 mg/dL (8.6-10.2) Total Bilirubin 0.3 mg/dL (0.0-1.2) 0.5 mg/dL (0.0-1.2) Aspartate Amino Transf (AST/SGOT) 21 U/L (5-40) 18 U/L (5-40) Alanine Aminotransferase (ALT/SGPT) 19 U/L (3-41) 16 U/L (3-41) Alkaline Phosphatase 114 U/L (40-129) 101 U/L (40-129) Troponin I < 0.30 ng/mL (<=0.30) Total Protein 7.3 g/dL (6.6-8.7) 6.7 g/dL (6.6-8.7) Albumin 3.8 g/dL (3.5-5.2) 3.5 g/dL (3.5-5.2) Globulin 3.5 g/dL 3.2 g/dL Albumin/Globulin Ratio 1.0 (1.0-2.7) 1.0 (1.0-2.7) Urine Color Yellow Urine Appearance Slightly cloudy Urine pH 7 (4.5-8.0) Urine Specific [place] 1.005 (1.005-1.035) Urine Protein Negative (NEGATIVE) Urine Glucose (UA) Negative (NEGATIVE) Urine Ketones Negative (NEGATIVE) Urine Occult Blood Negative (NEGATIVE) Urine Nitrite Positive (NEGATIVE) Urine Bilirubin Negative (NEGATIVE) Urine Urobilinogen 1 MG/DL (0.0-1.0) Urine Leukocyte Esterase 3+ (NEGATIVE) Urine RBC 0-2 /HPF (0 - 0) Urine WBC 5-10 /HPF (0 - 0) Urine Squamous Epithelial Cells Few /LPF (NONE/OCC) Urine Bacteria Moderate /HPF (NONE) Iron Level 89 ug/dL (59-158) Total Iron Binding Capacity 310 ug/dL (250-400) Percent Iron Saturation 29 % (15-50) Unsaturated Iron Binding 221 ug/dL (112-346) Triglycerides Level 130 mg/dL (< 150) Cholesterol Level 145 mg/dL (< 200) LDL Cholesterol 49 mg/dL (60-99) HDL Cholesterol 70 mg/dL (> 60) Cholesterol/HDL Ratio 2.1 (3.3-4.4) Carcinoembryonic Antigen 7.7 ng/mL Thyroid Stimulating Hormone (TSH) 0.900 uIU/mL (0.300-4.500) HIV (1&2) Antibody Rapid Negative (NEGATIVE) Prothrombin Time 10.0 SEC (9.30-11.50) Prothromb Time International Ratio 1.0 (0.9-1.1) Activated Partial Thromboplast Time 28 SEC (23-33) CA 19-9 Antigen 20.17 U/mL (< 37) Risk Assessment & Plan Assessment: asa2 Plan: mac Status Change Before Surgery: No Pre-Antibiotics Drug: MARIO Lemus Mar 04, 2017 06:19
[2017-03-04 07:02] LABS: BASOPHILS % (AUTO) 1.5 % (0.0-2.0); EOSINOPHILS % (AUTO) 8.2 % (0.0-3.0); LYMPHOCYTES % (AUTO) 40.3 % (20.0-45.0); MEAN CORPUSCULAR HEMOGLOBIN 29.5 PG (27.0-31.0); MEAN CORPUSCULAR HGB CONC 29.9 G/DL (32.0-36.0); MEAN CORPUSCULAR VOLUME 99 FL (80-99); MEAN PLATELET VOLUME 7.8 FL (6.5-10.1); PLATELET COUNT 234 K/UL (150-450); RED BLOOD COUNT 4.45 M/UL (4.70-6.10); RED CELL DISTRIBUTION WIDTH 14.4 % (11.6-14.8); WHITE BLOOD COUNT 5.3 K/UL (4.8-10.8)
[2017-03-04 07:25] LABS: ANION GAP 10 (5-15); CALCIUM 8.9 mg/dL (8.6-10.2); CARBON DIOXIDE 28 mEQ/L (20-30); CHLORIDE 106 mEQ/L (98-107); GLOMERULAR FILTRATION RATE > 60 mL/min (>60); HEMOLYSIS 2; POTASSIUM 4.5 mEQ/L (3.4-4.9); SODIUM 144 mEQ/L (135-145)
[2017-03-04] MEDS ORDERED: Propofol 10mg/ml 20ml IV ONE (08:00)
[2017-03-04] MEDS ORDERED: Lidocaine 1% MPF 10mg/ml 5ml ONE (08:00)
[2017-03-04] MEDS ORDERED: Tubing IV Secondary IV ONE (09:09)
[2017-03-04] MEDS ORDERED: Sterile Water Irrig 1000ml IRRIG ONE (09:09)
[2017-03-04] MEDS ORDERED: NS 275ml ONE (09:09)
--- NOTE | 2017-03-04 12:58 | Pre-Procedure Note/Attestation ---
Pre-Procedure Note/Attestation Complete Prior to Procedure Planned Procedure: not applicable Procedure Narrative: egd,colonoscopy Indications for Procedure Pre-Operative Diagnosis: anemia Attestation I attest that I discussed the nature of the procedure; its benefits; risks and complications; and alternatives (and the risks and benefits of such alternatives ), prior to the procedure, with the patient (or the patient's legal quality control representative). I attest that, if there was a reasonable possibility of needing a blood transfusion, the patient (or the patient's legal quality control representative) was given the [facility] standardized written summary, pursuant to the Ayad Sammie Blood Safety Act ([place] Health and Safety Code # 1645, as amended). I attest that I re-evaluated the patient just prior to the surgery and that there has been no change in the patient's H&P, except as documented below: SONI CARSON Mar 04, 2017 12:58
[2017-03-04] MEDS ORDERED: NS 550ML IV ONE (13:00)
--- NOTE | 2017-03-04 13:28 | Endoscopy Procedure Note ---
Endoscopy Procedure Note Indication for Procedure: wt loss Procedures Performed: EGD, colonoscopy Operative Findings/Diagnosis: multiple colon polyps Specimen: yes Pt Tolerated Procedure Well: Yes Estimated Blood Loss: none Anesthesiologist: faby augustine Anesthesia: MAC Implant(s) used?: No 50 yrs or older w/o bx or poly: Not Applicable 10yrs. F/U not recommended: Not Applicable SONI CARSON Mar 04, 2017 13:28
--- NOTE | 2017-03-04 13:37 | Diagnostic Imaging Report ---
Indication: Weight loss anemia Technique: Continuous helical transaxial imaging of the chest, abdomen and pelvis was obtained from the lung bases to the pubic symphysis during intravenous contrast administration. Multiple phases of enhancement obtained. Coronal 2-D reformats were also obtained. Study obtained in a Siemens sensation [address] Total Dose length Product (DLP): [address] Dose Index Volume (CTDIvol): 8.1, 0.2, 113.6, 9.5, 10.1 mGy Comparison: None Findings: Calcifications in the mediastinum and right lung noted consistent with old granulomatous disease. There is a noncalcified 4 mm nodule at the right base. There is emphysema with areas of hyperlucency, paraseptal 11 level formation. Generalized hyperinflation of the lungs noted. Aorta shows mural calcification. There are sutures in association with the stomach, probably wire rope sales representative of gastric bypass. Please confirm clinically. Calcified granuloma noted in the liver and spleen. Gallbladder is contracted. There is a gallstone present. The kidneys are unremarkable. There is no hydronephrosis. There is a relative absence of intra-abdominal fat which limits evaluation. Appendix is seen and normal. No evidence of bowel obstruction or free air or free fluid. Impression: Evidence of old granulomatous disease. 4 mm nodule at the right lung base. Recommend [address] Fleischner Society criteria Gallstone Atherosclerotic disease COPD/emphysema. Prior stomach surgery The CT scanner at [facility] is accredited by the [employer] and the scans are performed using dose optimization techniques as appropriate to a performed exam including Automatic Exposure control.
--- NOTE | 2017-03-04 13:57 | Immediate Post-Op Evaluation ---
Immediate Post-Op Evalulation Immediate Post-Op Evalulation Procedure: egd/colonoscopy Date of Evaluation: Mar 04, 2017 IV Fluids: 0.9ns 150ml Blood Products: none Estimated Blood Loss: negligible Blood Pressure Systolic: 136 Blood Pressure Diastolic: 94 Pulse Rate: 60 Respiratory Rate: 18 O2 Sat by Pulse Oximetry: 97 Temperature (Fahrenheit): 97.0 Pain Score (1-10): 0 Nausea: No Vomiting: No Complications none Patient Status: awake, reacts, patent Hydration Status: adequate Drug: MARIO Lemus Mar 04, 2017 13:57
--- NOTE | 2017-03-04 13:59 | 48 Hour Post Anesthesia Eval ---
Post Anesthesia Evaluation Procedure: egd/colonoscopy Date of Evaluation: Mar 04, 2017 Time of Evaluation: 13:59 Blood Pressure Systolic: 138 0: 86 Pulse Rate: 56 Respiratory Rate: 18 Temperature (Fahrenheit): 97.0 O2 Sat by Pulse Oximetry: 99 Airway: patent Nausea: No Vomiting: No Pain Intensity: 0 Hydration Status: adequate Cardiopulmonary Status: stable Mental Status/LOC: patient returned to baseline Post-Anesthesia Complications: none Follow-up care needed: N/A MARIO GURROLA Mar 04, 2017 13:59
[2017-03-04] MEDS ORDERED: Atropine Inj 1mg/10ml Syr IV PRN (14:00)
[2017-03-04] MEDS ORDERED: Midazolam 2mg/2ml Inj IVP PRN (14:00)
[2017-03-04] MEDS ORDERED: Hydromorphone 0.5mg/0.5ml inj IVP PRN (14:00)
[2017-03-04] MEDS ORDERED: DiphenhydrAMINE 50mg/ml Inj IVP PRN (14:00)
--- NOTE | 2017-03-04 18:53 | Pulmonology Progress Note ---
Assessment/Plan Problems: (1) Weight loss of more than 10% body weight (2) Anemia (3) Failure to thrive Assessment/Plan ga CT scan didn't show any malignancy HIV testing was negative stool for OB calorie count' ensure with meals pt/ot dc planning Subjective ROS Limited/Unobtainable: No Allergies: Coded Allergies: No Known Allergies (Unverified , 03/12/13) Objective Last 24 Hour Vital Signs Date Time Temp Pulse Resp B/P Pulse Ox O2 Delivery O2 Flow Rate FiO2 03/04/17 16:00 97.0 71 16 109/74 96 Room Air 03/04/17 14:10 97.0 58 22 134/78 96 Room Air 03/04/17 13:59 56 18 99 03/04/17 13:58 53 22 138/86 98 Room Air 03/04/17 13:57 60 18 97 03/04/17 13:50 53 21 136/94 98 Simple Mask 6.0 03/04/17 13:45 58 23 128/82 100 Simple Mask 6.0 03/04/17 13:43 97.0 55 23 125/81 100 Simple Mask 6.0 03/04/17 11:42 97.8 57 20 139/85 98 Room Air 03/04/17 08:26 98.0 62 20 104/72 98 Room Air 03/04/17 00:08 96.8 67 18 103/68 99 Room Air Intake and Output 03/03/17 03/04/17 19:00 07:00 Intake Total 55 ml Balance 55 ml IV Total 55 ml # Bowel Movements 7 Objective General Appearance: WD/WN HEENT: normocephalic, atraumatic Respiratory/Chest: chest wall non-tender, lungs clear Cardiovascular: normal peripheral pulses, normal rate Abdomen: normal bowel sounds, soft, non tender Genitourinary: normal external genitalia Extremities: no cyanosis, no clubbing Skin: no rash Microbiology Date/Time Source Procedure Growth Status 03/03/17 03:00 Urine,Clean Catch Urine Culture - Preliminary Gram Negative Bacillus 1 Resulted Laboratory Tests 03/04/17 05:15: White Blood Count 5.3, Red Blood Count 4.45L, Hemoglobin 13.2L, Hematocrit 44.0 , Mean Corpuscular Volume 99, Mean Corpuscular Hemoglobin 29.5, Mean Corpuscular Hemoglobin Concent 29.9L, Red Cell Distribution Width 14.4, Platelet Count 234, Mean Platelet Volume 7.8, Neutrophils (%) (Auto) 41.0L, Lymphocytes (%) (Auto) 40.3, Monocytes (%) (Auto) 9.0, Eosinophils (%) (Auto) 8.2H, Basophils (%) (Auto) 1.5, Prothrombin Time 10.0, Prothromb Time International Ratio 1.0, Activated Partial Thromboplast Time 28, Sodium Level 144, Potassium Level 4.5, Chloride Level 106, Carbon Dioxide Level 28, Anion Gap 10, Blood Urea Nitrogen 16, Creatinine 1.0, Estimat Glomerular Filtration Rate > 60, Glucose Level 80, Calcium Level 8.9, Alpha Fetoprotein [Pending], CA 19-9 Antigen 20.17 Current Medications Medications (Trade) Dose Ordered Sig/Hill Route PRN Reason Start Time Stop Time Status Last Admin Dose Admin Acetaminophen (Tylenol) 650 mg Q4H PRN ORAL fever 03/02/17 15:15 04/01/17 15:14 Al Hydroxide/Mg Hydroxide 30 ml 30 ml Q6H PRN ORAL dyspepsia 03/02/17 15:15 04/01/17 15:14 Ceftriaxone Sodium/Dextrose (Rocephin/D5W) 55 ml @ 110 mls/hr Q24H IVPB 03/03/17 21:00 03/10/17 20:59 03/03/17 20:33 Dextrose (Dextrose 50%) STAT PRN IV Hypoglycemia 03/02/17 15:15 04/01/17 15:14 Lorazepam (Ativan 2mg/ml 1ml) 0.5 mg Q4H PRN IV For Anxiety 03/02/17 15:15 03/09/17 15:14 Morphine Sulfate (Morphine Sulfate) 1 mg Q4H PRN IVP For Pain Scale 4-10 03/02/17 15:15 03/09/17 15:14 Ondansetron HCl (Zofran) 4 mg Q6H PRN IVP Nausea & Vomiting 03/02/17 15:15 04/01/17 15:14 Polyethylene Glycol (Miralax) 17 gm HSPRN PRN ORAL Constipation 03/02/17 15:15 04/01/17 15:14 Zolpidem Tartrate (Ambien) 5 mg HSPRN PRN ORAL Insomnia 03/02/17 15:15 04/01/17 15:14 BARBER GAMBLE Mar 04, 2017 18:53
--- NOTE | 2017-03-04 20:30 | Procedure Note ---
DATE OF PROCEDURE: 03/04/2017 SURGEON: Mega Gray M.D. PROCEDURE: Upper endoscopy with biopsy and colonoscopy with biopsy. ANESTHESIOLOGIST: Xiomara Chapman M.D. INSTRUMENT: Olympus adult flexible endoscope and colonoscope. INDICATION: Weight loss. REASON FOR PROCEDURE: The procedure, risks, benefits, and possible consequences, including hemorrhage, aspiration, perforation and infection, and alternative treatments, were explained to the patient/legal guardian by Dr. Mega Gray and the patient/legal guardian understood and accepted these risks. PROCEDURE: After informed consent was obtained and the patient was adequately sedated, Olympus upper endoscope was advanced mouth into the esophagus. The patient had total gastrectomy and a little amount of gastric pouch left. There was a little bit of narrowing at the opening of the anastomosis and inflamed. Biopsy from this area was obtained. At this time, the upper endoscope was retrieved and the patient was turned over for colonoscopy. First, rectal exam was performed, which was positive for internal hemorrhoid. Then, the scope was advanced from the rectum into the cecum. Quality of prep was poor. He had difficulty seeing. I do not know what the kind of therapy the patient got. The lens would keep getting clotted despite the washing would not go away. Despite all of this, we had to remove at least five polyps. This polyps two in transverse colon remove with the snare polypectomy technique. One in the descending colon. Also remove with a snare polypectomy technique. All of these three were roughly measured about 1 cm, there was multiple hyperplastic-looking polyps in the rectosigmoid area to obtain with biopsy. The patient tolerated the procedure without any complication. There was some evidence of the scattered diverticulosis. Retroflexion of rectum showed evidence of internal hemorrhoids. SUMMARY OF FINDINGS: 1. Total gastrectomy. 2. Anastomotic stricture and narrowing, status post biopsy. 3. A total of five polyps removed from the colon. 4. Scattered diverticulosis. 5. Internal hemorrhoids. RECOMMENDATIONS: 1. We will recommend repeat colonoscopy at least in three years. Given this quality of prep and this number of polyps, the patient needs repeat colonoscopy not greater than three years. 2. Follow up biopsies and treat accordingly. I want to thank Dr. Germain, for this kind referral. Mega Tam Gray DR: LINDY JOB#: [id number] CC: Emerita Germain M.D.; Fax#: [phone]
[2017-03-04] MEDS: cefTRIAXone 1 GM in D5W 55 ML IVPB SCH (20:37)
[2017-03-05] VITALS: BP 103/69
[2017-03-05 04:00] VITALS: BP 109/75
[2017-03-05 07:25] LABS: BASOPHILS % (AUTO) 1.1 % (0.0-2.0); EOSINOPHILS % (AUTO) 6.6 % (0.0-3.0); LYMPHOCYTES % (AUTO) 39.5 % (20.0-45.0); MEAN CORPUSCULAR HEMOGLOBIN 30.4 PG (27.0-31.0); MEAN CORPUSCULAR HGB CONC 30.8 G/DL (32.0-36.0); MEAN CORPUSCULAR VOLUME 98 FL (80-99); MEAN PLATELET VOLUME 6.6 FL (6.5-10.1); MONOCYTES % (AUTO) 5.9 % (1.0-10.0); NEUTROPHILS % (AUTO) 46.9 % (45.0-75.0); PLATELET COUNT 216 K/UL (150-450); RED BLOOD COUNT 4.21 M/UL (4.70-6.10); RED CELL DISTRIBUTION WIDTH 14.7 % (11.6-14.8)
[2017-03-05 07:45] LABS: ANION GAP 11 (5-15); CALCIUM 9.2 mg/dL (8.6-10.2); CARBON DIOXIDE 27 mEQ/L (20-30); CHLORIDE 103 mEQ/L (98-107); CREATININE 1.1 mg/dL (0.7-1.2); GLOMERULAR FILTRATION RATE > 60 mL/min (>60); HEMOLYSIS 3; POTASSIUM 4.6 mEQ/L (3.4-4.9); SODIUM 141 mEQ/L (135-145)
[2017-03-05 08:04] VITALS: BP 93/67
[2017-03-05 11:22] VITALS: BP 122/61
[2017-03-05 15:52] VITALS: BP 149/65
[2017-03-05] MEDS ORDERED: AMBIEN5 MG ORAL (16:07)
[2017-03-05] MEDS ORDERED: MARINOL2.5 MG ORAL (16:07)
--- NOTE | 2017-03-05 16:08 | Pulmonology Progress Note ---
Assessment/Plan Problems: (1) Weight loss of more than 10% body weight (2) Anemia (3) Failure to thrive Assessment/Plan add marinol to increase appetite stool for OB calorie count' ensure with meals pt/ot dc planning Subjective ROS Limited/Unobtainable: No Interval Events: doing better Allergies: Coded Allergies: No Known Allergies (Unverified , 03/12/13) Objective Last 24 Hour Vital Signs Date Time Temp Pulse Resp B/P Pulse Ox O2 Delivery O2 Flow Rate FiO2 03/05/17 15:52 97.7 78 18 149/65 100 Room Air 03/05/17 11:22 97.5 64 19 122/61 100 Room Air 03/05/17 08:04 97.2 69 19 93/67 100 Room Air 03/05/17 04:00 97.7 78 18 109/75 98 Room Air 03/05/17 00:00 97.5 69 18 103/69 100 Room Air 03/04/17 20:00 97.3 74 18 101/72 95 Room Air Intake and Output 03/04/17 03/05/17 19:00 07:00 Intake Total 150 ml 55 ml Output Total 0 ml Balance 150 ml 55 ml IV Total 150 ml 55 ml Estimated Blood Loss 0 ml # Voids 1 2 Objective General Appearance: WD/WN HEENT: normocephalic, atraumatic Respiratory/Chest: chest wall non-tender, lungs clear Cardiovascular: normal peripheral pulses, normal rate Abdomen: normal bowel sounds, soft, non tender Genitourinary: normal external genitalia Extremities: no cyanosis, no clubbing Skin: no rash Microbiology Date/Time Source Procedure Growth Status 03/03/17 03:00 Urine,Clean Catch Urine Culture - Preliminary Citrobacter Diversus Resulted Laboratory Tests 03/05/17 05:10: White Blood Count 5.0, Red Blood Count 4.21L, Hemoglobin 12.8L, Hematocrit 41.4L , Mean Corpuscular Volume 98, Mean Corpuscular Hemoglobin 30.4, Mean Corpuscular Hemoglobin Concent 30.8L, Red Cell Distribution Width 14.7, Platelet Count 216, Mean Platelet Volume 6.6, Neutrophils (%) (Auto) 46.9, Lymphocytes (%) (Auto) 39.5, Monocytes (%) (Auto) 5.9, Eosinophils (%) (Auto) 6.6H, Basophils (%) (Auto) 1.1, Sodium Level 141, Potassium Level 4.6, Chloride Level 103, Carbon Dioxide Level 27, Anion Gap 11, Blood Urea Nitrogen 19, Creatinine 1.1, Estimat Glomerular Filtration Rate > 60, Glucose Level 85, Calcium Level 9.2 Current Medications Medications (Trade) Dose Ordered Sig/Hill Route PRN Reason Start Time Stop Time Status Last Admin Dose Admin Acetaminophen (Tylenol) 650 mg Q4H PRN ORAL fever 03/02/17 15:15 04/01/17 15:14 Al Hydroxide/Mg Hydroxide 30 ml 30 ml Q6H PRN ORAL dyspepsia 03/02/17 15:15 04/01/17 15:14 Ceftriaxone Sodium/Dextrose (Rocephin/D5W) 55 ml @ 110 mls/hr Q24H IVPB 03/03/17 21:00 03/10/17 20:59 03/04/17 20:37 Dextrose (Dextrose 50%) STAT PRN IV Hypoglycemia 03/02/17 15:15 04/01/17 15:14 Lorazepam (Ativan 2mg/ml 1ml) 0.5 mg Q4H PRN IV For Anxiety 03/02/17 15:15 03/09/17 15:14 Morphine Sulfate (Morphine Sulfate) 1 mg Q4H PRN IVP For Pain Scale 4-10 03/02/17 15:15 03/09/17 15:14 Ondansetron HCl (Zofran) 4 mg Q6H PRN IVP Nausea & Vomiting 03/02/17 15:15 04/01/17 15:14 Polyethylene Glycol (Miralax) 17 gm HSPRN PRN ORAL Constipation 03/02/17 15:15 04/01/17 15:14 Zolpidem Tartrate (Ambien) 5 mg HSPRN PRN ORAL Insomnia 03/02/17 15:15 04/01/17 15:14 BARBER GAMBLE Mar 05, 2017 16:08
[2017-03-05 20:00] VITALS: BP 116/74
--- NOTE | 2017-03-09 13:13 | Discharge Summary ---
Discharge Summary Hospital Course Date of Admission Mar 02, 2017 at 15:36 Date of Discharge Mar 05, 2017 at 20:06 Admitting Diagnosis failure to thrive, weakness JING Anderson is a 66 year old male who was admitted on Mar 02, 2017 at 15:36 for Failure To Thrive, Weakness Hospital Course dc summary #[id number] Discharge Medications New Medications: Dronabinol* (Marinol*) 2.5 Mg Capsule 2.5 MG ORAL THREE TIMES A DAY, #15 CAP 0 Refills Zolpidem Tartrate* (Ambien*) 5 Mg Tablet 5 MG ORAL HSPRN PRN for 30 Days, TAB Discharge Condition Upon Discharge: stable Discharge Disposition Patient was discharged to SNF/Subacute Facility(03) Discharge Diagnoses: Discharge Instructions Discharge Instructions Special Instructions I have been assigned to complete a D/C Summary on this account. I was not involved in the patient management Beverley Hancock NP ([place]te[place]) Mar 09, 2017 13:13
--- NOTE | 2017-03-10 12:45 | Discharge Summary 2 SIG ---
DATE OF ADMISSION: 03/02/2017 DATE OF DISCHARGE: 03/05/2017 The patient is admitted under Dr. Germain. REASON FOR ADMISSION: The patient is a 66-year-old male, status post appendectomy, cholecystectomy, and surgical resection of the stomach, presented with three weeks of lightheadedness, decreased appetite, and fatigue. He stated loss of appetite. He lost about 15 pounds in two weeks. He had no appetite for both food and fluid. He reported nausea, but no vomiting. No hematemesis. No hematochezia. No melena. He denies abdominal pain, but occasional loose stool. No fever. No chills. Admits to mild shortness of breath. No chest pain. No history of malignancy. In the emergency room, the patient's vital signs were stable, afebrile, and pulse oximetry stable on room air. No leukocytosis. Stable hemoglobin and hematocrit with some anemia. Hemoglobin 11.5 and hematocrit 35.5. Electrolytes were stable. LFT within normal limits. Troponin negative. Albumin 3.8. The patient was admitted for further management. ADMITTING DIAGNOSES: Includes: 1. Weight loss, more than 100% of body weight. 2. Anemia. HOSPITAL STAY: The patient was admitted. The patient was started on the IV fluids. GI consult requested. Chest x-ray revealed chronic obstructive pulmonary disease, but no acute cardiopulmonary pathology. Supplemental oxygen provided as needed to keep saturation above 92%. Pulmonary toilet provided as needed. GI seen and evaluated the patient. Anemia workup revealed stable iron, but elevated CEA of 7.7. Subsequently, tumor markers were done. CA-19-9 and alpha-fetoprotein both were within normal limits. Electrolytes stable. The patient was scheduled for EGD and colonoscopy. Subsequently, undergone both procedures on . Results of biopsy of pathology revealed all polyps have no high-grade dysplasia and stomach biopsy revealed mild chronic active inflammation. There is no H. pylori that was identified. It was negative for dysplasia or malignancy. During the esophagogastroduodenoscopy, the patient had a total gastrectomy with anastomotic stricture and narrowing. Five polyps were removed from colon during colonoscopy. Noted scattered diverticulosis and internal hemorrhoids. The patient need to repeat colonoscopy no later than in three years because the patient has multiple polyps on the exam. Urinalysis was questionable for urinary tract infection. Urine culture was sent and grew Citrobacter. The patient was on empiric antibiotic. It was discontinued prior to discharge. Hemoglobin and hematocrit were closely monitored and they were at the baseline. The patient was stable for discharge to care home facility. Of note, calorie count . Marinol added for improvement of appetite. Dietary evaluation recommended Ensure t.i.d, which was to nutritional regimen. The patient was stable for discharge to care home facility. Follow up with medical doctor at the facility. DISCHARGE MEDICATIONS: See medication reconciliation list. DISCHARGE INSTRUCTIONS: The patient was discharged to care home facility. Follow up with medical doctor at the facility. DISCHARGE DIAGNOSES: 1. Weight loss, more than 10% of body weight. 2. Anemia. 3. Status post esophagogastroduodenoscopy and colonoscopy. 4. Multiple polyps. 5. Diverticulosis. 6. Urine tract infection with Citrobacter. 7. Elevated CEA. Emerita Germain M.D. I have been assigned to dictate discharge summary on this account and I was not involved in the patient's management. Beverley [facility]ood [facility]: OMER JOB#: [id number] CC:
--- NOTE | 2017-03-11 00:58 | Cardiology Report ---
APPROVED REPORT EKG Measurement Heart [id number] Normal sinus rhythm Early repolarization Normal ECG
== END 2017-03-05 20:06 | DRG 641 ==
LOC: EMR 15:25 → 4W 15:36 → EDBEDREQ 16:11
PROC: 0DBL8ZZ Excision of Transverse Colon, Via Natural or Artificial Opening Endoscopic (ICD-10-PCS; principal; 2017-03-04 13:01)
PROC: 0DB68ZX Excision of Stomach, Via Natural or Artificial Opening Endoscopic, Diagnostic (ICD-10-PCS; principal; 2017-03-04 13:01)
PROC: 0DBM8ZZ Excision of Descending Colon, Via Natural or Artificial Opening Endoscopic (ICD-10-PCS; principal; 2017-03-04 13:01)
PROC: 0DBN8ZZ Excision of Sigmoid Colon, Via Natural or Artificial Opening Endoscopic (ICD-10-PCS; principal; 2017-03-04 13:01)
DX: R62.7 Adult failure to thrive (principal); N39.0 Urinary tract infection, site not specified; Z68.1 Body mass index [BMI] 19.9 or less, adult; R63.4 Abnormal weight loss; R63.0 Anorexia; E86.0 Dehydration; K63.5 Polyp of colon; D64.9 Anemia, unspecified; Z90.3 Acquired absence of stomach [part of]; K31.89 Other diseases of stomach and duodenum; K57.90 Diverticulosis of intestine, part unspecified, without perforation or abscess without bleeding; K64.8 Other hemorrhoids; B96.89 Other specified bacterial agents as the cause of diseases classified elsewhere; R97.0 Elevated carcinoembryonic antigen [CEA]
CPT/HCPCS: 36415; 71010; 71260; 74177; 80048; 80053; 80061; 81003; 82105; 82378; 83540; 83550; 84443; 84484; 85025; 85610; 85730; 86301; 86703; 87086; 87181; 93005; 94003; 94150